=== PATIENT | female | born 1985 | race Caucasian/White ===

== ENCOUNTER 2016-04-24 19:31 | Emergency (ER) ==
[2016-04-24] MEDS ORDERED: DECADRON IM ONE (19:48)
--- NOTE | 2016-04-24 19:54 | PROVIDER DOCUMENTATION ---
HPI-General Adult - General Stated Complaint: SINUS PAIN Time Seen by Provider: 04/24/16 19:33 Source: patient Allergies/Adverse Reactions: Patient Allergies Allergy/AdvReac Type Severity Reaction Status Date / Time No Known Allergies Allergy Verified 12/29/15 02:53 - History of Present Illness -Gen Adult Nature of Presenting Problems: 31 yo female presents to the emergency room with a chief complaint of sinus pressure to left side of face and congestion onset today. Reports took OTC medication w/o relief. Denies fever, chills, sore throat, ear ache, cough or N/V /D. Severity: reports: mild Onset/Duration: reports: this morning Timing: reports: still present Modifying Factors: worse with: palpation Associated Symptoms: reports: sinus congestion/drainage. denies: fever/chills Review of Systems - Adult - REVIEW OF SYSTEMS - ADULT Constitutional: denies: chills, fever Eyes: reports: no symptoms reported Ears, Nose, Mouth & Throat: reports: sinus problem Cardiovascular: reports: no symptoms reported Respiratory: reports: no symptoms reported Gastrointestinal: reports: no symptoms reported Genitourinary: reports: no symptoms reported Musculoskeletal: reports: no symptoms reported Integumentary: reports: no symptoms reported Neurological: reports: no symptoms reported Psychiatric: reports: no symptoms reported Endocrine: reports: no symptoms reported Hematologic/Lymphatic: reports: no symptoms reported Allergic/Immunologic: reports: no symptoms reported All Other Systems: Reviewed and Negative Past History - Adult - PAST MEDICAL HISTORY-ADULT Review of Records: reports: Nursing Assessment Review, Medications Reviewed Major Childhood Illnesses: reports: denies history Cardiovascular: reports: denies history Respiratory: reports: denies history Gastrointestinal: reports: denies history Obstetrical/Gynecological: reports: denies history Genitourinary: reports: denies history Musculoskeletal: reports: denies history Neurological: reports: denies history Endocrine/Immune: reports: denies history Other Conditions: reports: other (cyst ) - PRIOR SURGERIES/PROCEDURES Surgical/Procedure History: reports: - IMMUNIZATION STATUS Childhood Immunizations: See Nurse Assessment Flu Vaccine: See Nurse Assessment - FAMILY HISTORY Family History: reviewed, not pertinent - SOCIAL HISTORY Smoking: cigarettes, less than 1 pack/day Provider spent 3-5 mins advising pt. on dangers of tobacco.: Discussed manners to quit use, and f/u contacts for add'l counseling. Physical Exam-General - PHYSICAL EXAM-ADULT Initial Vital Signs Reviewed: Yes - CONSTITUTIONAL General Appearance: appears well, alert, no apparent distress - EYES Eyes: PERRL/EOMI, pink conjunctivae - HEAD, EARS, NOSE, MOUTH & THROAT HENMT: normocephalic/atraumatic, moist mucous membranes, normal ENT inspection, TMs normal, pharynx normal, maxillary tenderness - NECK Neck: full range of motion, supple - RESPIRATORY Respiratory: lungs clear, normal breath sounds - GASTROINTESTINAL (ABDOMEN) Abdominal Exam: non tender, soft - MUSCULOSKELETAL Extremity: normal range of motion, normal inspection, normal capillary refill - SKIN Integumentary: normal color, normal turgor, warm/dry Progress - PLAN OF CARE/RESULTS Progress/Plan/Lab Results: Discussed care, diagnosis and need for follow-up, patient verbalized understanding Orders Category Date Time Status Dexamethasone [Decadron] Med 04/24/16 19:48 Discontinued 10 mg IM NOW ONE Allergies No Known Allergies Allergy (Verified 12/29/15 02:53) Orders Category Date Time Status Dexamethasone [Decadron] Med 04/24/16 19:48 Discontinued 10 mg IM NOW ONE Last Vital Signs Temp 98.3 F 04/24/16 20:07 Pulse 88 04/24/16 20:07 Resp 18 04/24/16 20:07 BP 163/90 04/24/16 20:07 Pulse Ox 98 04/24/16 20:07 Allergies No Known Allergies Allergy (Verified 12/29/15 02:53) Vital Signs - 24 hr 04/24/16 20:07 Temperature 98.3 F Pulse Rate 88 Respiratory 18 Rate Blood Pressure 163/90 O2 Sat by Pulse 98 Oximetry Departure - Departure Time of Disposition Order: 19:49 DIAGNOSIS: Sinusitis Qualifiers: Sinusitis location: unspecified location Chronicity: acute Recurrence: non- recurrent Qualified Code(s): J01.90 - Acute sinusitis, unspecified Disposition: HOME 01 Certified Medical Emergency: Urgent Condition: Stable Additional Instructions: ED Follow Up Instructions: You have been treated by a care provider in the Emergency Department. These instructions are being provided to you so you can have an understanding of how to care for yourself upon discharge. Upon discharge from the Emergency Department, you are responsible for making arrangements for follow-up care by a physician of your choice. Take all prescribed medications as directed. Return to the Emergency Department immediately for any new or worsening symptoms. You may call the Physician Referral phone number at [phone] to obtain a list of Physicians who are taking new patients. Referrals: Alejo Taylor MD [Primary Care Provider] - Forms: Return to School/Parent Work Instructions: Cefdinir capsules, Sinusitis, Adult Attestation - Physician/ Mid-level Attestation Patient care was provided by Mid-level provider (REPAIR [employer]SEMBLER/PA):: Yes Mid-level provider:: Angela Hook Mid-level documentation review:: The Mid-level provider documentation, treatment plan and medical decision making was reviewed by the physician who agrees with all treatment and medical decision making by the MLP.
[2016-04-24 20:11] VITALS: BP 163/90
== END 2016-04-24 21:12 | disposition home or self-care (01) ==
LOC: P.ED 19:31
DX: J01.90 Acute sinusitis, unspecified (principal); R09.81 Nasal congestion; J34.89 Other specified disorders of nose and nasal sinuses; F17.210 Nicotine dependence, cigarettes, uncomplicated; Z71.6 Tobacco abuse counseling
CPT/HCPCS: 96372

== ENCOUNTER 2016-06-16 05:10 | Day surgery (SDC) ==
[2016-06-16] MEDS ORDERED: LR 1,000 ML ONE (05:13)
[2016-06-16] MEDS ORDERED: PEPCID ONE (05:13)
[2016-06-16] MEDS ORDERED: KEFZOL 2 GM/D5W 50 ML ONE (05:13)
[2016-06-16] MEDS ORDERED: REGLAN ONE (05:13)
[2016-06-16] MEDS ORDERED: MARCAINE 0.25% PF/EPI 1:200,000 ONE (08:03)
[2016-06-16] MEDS ORDERED: XYLOCAINE 1% ONE (08:03)
[2016-06-16] MEDS: MORPHINE ONE ×3 (09:30→09:36)
[2016-06-16 10:38] VITALS: BP 133/60
--- NOTE | 2016-06-16 11:56 | OPERATIVE NOTE ---
PROCEDURE DATE: 06/16/2016 PREOPERATIVE DIAGNOSIS: Recurrent pilonidal cyst. POSTOPERATIVE DIAGNOSIS: Recurrent pilonidal cyst. PROCEDURE PERFORMED: Excision of recurrent pilonidal cyst. SURGEON: Hugh Rios MD ELECTRICIAN CONTROL EQUIPMENT: None. ANESTHESIA: General endotracheal. INTRAOPERATIVE FINDINGS: As above. COMPLICATIONS: None at the time of dictation. ESTIMATED BLOOD LOSS: 20 mL. SPECIMENS REMOVED: Skin involving the cyst. HISTORY: The patient is a 31-year-old female with a recurrent pilonidal cyst. She wanted this area removed because it was causing her tenderness. The risks, benefits, and alternatives were discussed. She voiced understanding and wished to proceed with the procedure. DESCRIPTION OF PROCEDURE: After informed consent was obtained, the patient was brought to the operating theater, transferred to the operating room, and placed in supine position. General endotracheal anesthesia was then performed without complication. The patient was then repositioned prone. The gluteal folds were taped apart to expose the pilonidal cyst. After taping it, we prepped and draped in the standard sterile fashion and performed a formal time-out, confirming patient, date, and procedure. All were in agreement. At that time, we turned our attention to the cyst and the skin. We made an elliptical incision, approximately 6 cm in length, over the previous excision of the pilonidal cyst. We carried it down through subcutaneous tissue. We encountered the cyst cavity and removed it in its entirety. We turned our attention to this area. The width of the initial incision was approximately 1.5 cm. Upon removing the skin, it stretched to approximately 5 cm. There was a significant amount of tension in the skin. We attempted to close this with complex closure by making flaps bilaterally. We closed it in layers after creating the subcutaneous flaps with 3-0 Vicryl and a combination of 3-0 chromic and 0 chromic for the skin. This area was still under some degree of tension. We could not get the skin completely apposed to itself. We placed as many sutures as we could without putting undue tension to cause ischemia. We placed a tension dressing on the area. The patient tolerated the procedure well and was transferred to the recovery room in stable condition. Postoperatively, we will follow up with the area, discuss with the patient's family in preop room in recovery room that the chance, if the wound opens up, we will have to do wet-to-dry dressing change given the tension.
[2016-06-16] MEDS ORDERED: FENTANYL ONE (16:55)
[2016-06-16] MEDS ORDERED: VERSED ONE (16:55)
[2016-06-16] MEDS ORDERED: DIPRIVAN 1% ONE (16:55)
[2016-06-17] MEDS ORDERED: LUBRIFRESH PM OPH OINTMENT ONE (09:52)
[2016-06-17] MEDS ORDERED: ZEMURON ONE (09:52)
[2016-06-17] MEDS ORDERED: LR 1,000 ML ONE (09:52)
[2016-06-17] MEDS ORDERED: ROBINUL ONE (09:52)
[2016-06-17] MEDS ORDERED: QUELICIN (DOSE) ONE (09:52)
[2016-06-17] MEDS ORDERED: XYLOCAINE-MPF 2% ONE (09:52)
[2016-06-17] MEDS ORDERED: ZOFRAN ONE (09:52)
== END 2016-06-16 10:42 | disposition home or self-care (01) ==
LOC: OPS 05:10
PROVIDERS: ATTEND Surgery
DX: L05.01 Pilonidal cyst with abscess (principal); F17.210 Nicotine dependence, cigarettes, uncomplicated
CPT/HCPCS: 88304; J0330; J0690; J2250; J2270; J2405; J3010; J7120; S0020